=== PATIENT | male | born 1935 | race Caucasian/White ===

== ENCOUNTER 2017-10-15 17:41 | Inpatient (IN) ==
[2017-10-15 18:37] LABS: Basophils # 0.1 K/mm3 (0-0.2); Basophils % 0.5 % (0.1-2.0); Eosinophils # 0.5 K/mm3 (0.0-0.4); Eosinophils % 4.1 % (0.1-12.0); Hematocrit 37.1 % (42.0-52.0); Hemoglobin 11.7 g/dL (14.1-18.0); Lymphocytes # 1.9 K/mm3 (0.7-4.5); Lymphocytes % 14.6 K/mm3 (10-50); Mean Corpuscular HGB Conc 31.5 g/dL (31.8-35.4); Mean Corpuscular Hemoglobin 28.5 pg (27.0-31.2); Mean Corpuscular Volume 90.6 fl (80-94); Mean Platelet Volume 8.3 fl (7.4-10.4); Monocytes # 0.8 K/mm3 (0.1-1.0); Monocytes % 6.4 % (1.7-9.3); Neutrophils # 9.9 K/mm3 (1.8-7.8); Neutrophils % 74.4 % (37.0-80.0); Platelet Count 356 K/mm3 (142-424); Red Blood Count 4.09 M/mm3 (4.60-6.20); Red Cell Distribution Width 13.7 % (11.5-17.5); White Blood Count 13.2 K/mm3 (4.8-10.8)
[2017-10-15 19:00] LABS: Albumin Level 1.9 gm/dL (3.4-5.0); Albumin/Globulin Ratio 0.6 (1.1-1.8); Bilirubin,Total 0.5 mg/dL (0.2-1.0); Calcium 9.1 mg/dL (8.5-10.1); Free T4 (Free Thyroxine) 1.25 ng/dl (0.76-1.46); Globulin 3.4 gm/dl (1.3-3.2); Thyroid Stimulating Hormone 3.64 uIU/ml (0.358-3.740)
[2017-10-15 19:11] LABS: Total Protein,Serum 8.3 gm/dL (6.4-8.2)
--- NOTE | 2017-10-15 19:55 | Emergency Department Note ---
ED Disposition Clinical Impression: Bigeminy Disposition: Admitted As Inpatient Condition on Discharge: Good Time of Disposition: 19:55 - Critical Care Critical Care Time: No Attestation: On 10/15/17, the high probability of a clinically significant, sudden or life threatening deterioration of the following system(s) required my full and direct attention, intervention and personal management. The time I documented below is in addition to time spent performing reported procedures but includes the following listed in this critical care notation. Medical Decision Making - Medical Records Medical records reviewed: Yes: I reviewed the patient's medical records. - Zeus Inquiry Pt receiving controlled substance: No Vital Signs: 10/15/17 17:49 10/15/17 20:17 10/15/17 21:00 Temperature 98.7 F 98.5 F Temperature Source Oral Oral Pulse Rate [Right Radial] 68 75 Respiratory Rate 20 20 Blood Pressure [Right Arm] 160/81 186/86 Blood Pressure Mean [Right Arm] 107 119 Blood Pressure Source [Right Arm] Automatic Cuff Blood Pressure Position [Right Arm] Supine 02 Sat by Pulse Oximetry 96 90 L Oxygen Delivery Method Nasal Cannula Nasal Cannula Nasal Cannula Oxygen Flow Rate (LPM) 2 4 4 - Lab Data Lab results reviewed: Yes: I reviewed the patient's lab results. Lab Results 10/15/17 18:20: WBC 13.2 H, RBC 4.09 L, Hgb 11.7 L, Hct 37.1 L, MCV 90.6, MCH 28.5, MCHC 31.5 L, RDW 13.7, Plt Count 356, MPV 8.3, Neut % (Auto) 74.4, Lymph % (Auto) 14.6, [place] % (Auto) 6.4, Eos % (Auto) 4.1, Baso % (Auto) 0.5, Neut # ( Auto) 9.9 H, Lymph # (Auto) 1.9, [place] # (Auto) 0.8, Eos # (Auto) 0.5 H, Baso # ( Auto) 0.1 10/15/17 18:20: Sodium 140, Potassium 4.0, Chloride 102, Carbon Dioxide 33 H, Anion Gap 9.0, BUN 54 H, Creatinine 1.62 H, Estimated Creat Clear 54, Estimated GFR 41 L, Est GFR ( Amer) 49 L, Glucose 130 H, Calcium 9.1, Total Bilirubin 0.5, AST 168 H, ALT 23, Alkaline Phosphatase 205 H, Total Creatine Kinase 38 L, CK-MB (CK-2) 1.0, CK-MB (CK-2) Rel Index 2.6, Troponin I 0.03, Total Protein 8.3 H, Albumin 1.9 L, Globulin 3.4 H, Albumin/Globulin Ratio 0.6 L , TSH 3.64, Free T4 1.25 10/15/17 18:25: Lactic Acid 1.1 10/15/17 20:24: Urine Color Yellow, Urine Appearance Clear, Urine pH 6.0, Ur Specific [place] 1.020, Urine Protein 2+, Urine Glucose (UA) Negative, Urine Ketones Negative, Urine Blood Negative, Urine Nitrate Negative, Urine Bilirubin Negative, Urine Urobilinogen 0.2, Ur Leukocyte Esterase Negative, Urine RBC None , Urine WBC 3-5, Ur Squamous Epith Cells None, Urine Bacteria 1+ 10/15/17 23:25: Troponin I 0.02 10/16/17 06:25: Total Creatine Kinase 34 L, CK-MB (CK-2) 1.4 D, CK-MB (CK-2) Rel Index 4.1 H, Troponin I 0.02 Result diagrams: 10/15/17 18:20 10/15/17 18:20 Orders (Tests/Meds): ED MEDICATIONS Generic Name Dose Route Start Last Admin Trade Name Mooseq PRN Reason Stop Dose Admin Albuterol/Ipratropium 3 ml 10/16/17 13:00 10/16/17 13:32 Duoneb 3ml Neb IH 11/15/17 12:59 3 ml TIDRT TEODORO Administration Aspirin 81 mg 10/16/17 09:00 10/16/17 08:42 Aspirin 81mg Chewable Tablet PO 11/15/17 08:59 81 mg DAILY TEODORO Administration Bisoprolol Fumarate 10 mg 10/16/17 09:00 10/16/17 09:26 Zebeta 5mg Tablet PO 11/15/17 08:59 10 mg BID TEODORO Administration Carbidopa/Levodopa 1 each 10/16/17 07:47 10/16/17 14:17 Carbidopa/Levodopa 25/100mg Tablet PO 11/14/17 20:59 1 each TID TEODORO Administration Gabapentin 300 mg 10/15/17 21:00 10/16/17 08:43 Neurontin 300mg Capsule PO 11/14/17 20:59 300 mg BID TEODORO Administration Azithromycin 500 mg/ Sodium 250 mls @ 250 mls/hr 10/16/17 09:00 10/16/17 09: 28 Chloride IV 10/30/17 08:59 250 mls/hr Q24H TEODORO Administration Protocol Ceftriaxone Sodium 1 gm/ 50 mls @ 100 mls/hr 10/16/17 08:00 10/16/17 08:41 Sodium Chloride IV 10/30/17 07:59 100 mls/hr Q24H TEODORO Administration Protocol Levothyroxine Sodium 50 mcg 10/17/17 07:00 Synthroid 50mcg (0.05mg) Tablet PO 11/16/17 06:59 DAILYDM TEODORO Loratadine 10 mg 10/16/17 09:00 10/16/17 08:43 Claritin 10mg Tablet PO 11/15/17 08:59 10 mg DAILY TEODORO Administration Methylprednisolone Sodium Succinate 60 mg 10/16/17 09:45 10/16/17 16:09 Solu-Medrol 125mg/2ml Vial IV 11/15/17 09:44 60 mg Q6H TEODORO Administration Pt's Own Med 1 each 10/16/17 09:00 10/16/17 08:43 Umeclidinium Brm/ IH 11/15/17 08:59 1 each Vilanterol Tr [Anoro DAILY TEODORO Administration Ellipta] 62.5-25 Mcg Inh Pt's Own Med 2.5 mg 10/15/17 21:00 10/16/17 08:42 Apixaban [Eliquis] 2 PO 11/14/17 20:59 2.5 mg .5 Mg Tab BID TEODORO Administration Polyethylene Glycol 17 gm 10/16/17 09:00 Miralax 17gm Packet PO 11/15/17 08:59 DAILY PRN Constipation Pravastatin Sodium 40 mg 10/16/17 21:00 Pravachol 40mg Tablet PO 11/15/17 20:59 HS TEODORO Discontinued Medications Generic Name Dose Route Start Last Admin Trade Name Freq PRN Reason Stop Dose Admin Carbidopa/Levodopa 25 - 100 each 10/15/17 21:00 10/15/17 21:50 Carbidopa/Levodopa 25/100mg Tablet PO 11/14/17 20:59 1 each TID TEODORO Administration Carvedilol 25 mg 10/15/17 21:00 10/15/17 21:50 Coreg 25mg Tablet PO 11/14/17 20:59 25 mg BID TEODORO Administration Non-Formulary Medication 20 mg 10/15/17 21:00 10/15/17 23:36 Simvastatin [Zocor] PO 11/14/17 20:59 Not Given HS TEODORO ORDERS Category Date Time Status Consult to Cardiology [CONS] Routine Cons 10/15/17 20:35 Active Blood Culture Stat Micro 10/16/17 06:04 Received Sputum Culture & Gram Stain Routine Micro 10/16/17 08:50 Results - Radiology Data #1 Image(s): Chest Image Reviewed: Yes I reviewed the patient's radiology results, Yes I reviewed the patient's radiology image, Yes I have reviewed radiologist's interpretation Preliminary Findings: Normal/NAD - Physician Consults Physician Consulted: Dr Sanchez Time: 19:59 Reason -: Admission, Pt condition Comment/Response: agreeable to admit the patient - Reevaluation(s) Time: 20:00 Reevaluation #1: no improvement in the heart rhythm Weakness HPI - General Chief complaint: Weakness Stated complaint: LOW HEART RATE Time Seen by Provider: 10/15/17 18:00 Mode of Arrival: EMS Source of Information: Patient Limitations: No Limitations Description of Symptoms (Recalled from ER Triage Doc. by RN): SHELTER REPORTS HEART RATE OF 40s. 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 - History of Present Illness MD Complaint: generalized weakness Onset (ago): day(s) (1) Duration: constant Location: generalized Severity scale (1-10): 4 Quality: tingling Relieving factors: none Exacerbating factors: none Associated symptoms: denies other symptoms - Related Data Home Medications Medication Instructions Recorded Confirmed Apixaban [Eliquis] 2.5 mg PO BID 10/15/17 10/15/17 Aspirin 81 mg PO DAILY 10/15/17 10/15/17 Carbidopa/Levodopa 1 each PO TID 10/15/17 10/16/17 [Carbidopa/Levodopa 25/100mg Tablet] Carvedilol [Carvedilol 25mg Tab] 25 mg PO BID 10/15/17 10/15/17 Gabapentin [Gabapentin 300mg Cap] 300 mg PO BID 10/15/17 10/15/17 Loratadine [Claritin] 10 mg PO DAILY 10/15/17 10/15/17 Polyethylene Glycol 3350 [Miralax 17 gm PO DAILY PRN 10/15/17 10/15/17 Powder] Simvastatin [Zocor] 20 mg PO HS 10/15/17 10/15/17 Umeclidinium Brm/Vilanterol Tr 1 each IH DAILY 10/15/17 10/15/17 [Anoro Ellipta 62.5-25 Mcg INH] Fluticasone Furoate [Arnuity 1 puff IH DAILY 10/16/17 10/16/17 Ellipta] Levothyroxine Sodium 50 mcg PO DAILY 10/16/17 10/16/17 [Levothyroxine 50mcg (0.05mg) Tab] Multivitamin [Men's Multi-Vitamin] 1 each PO DAILY 10/16/17 10/16/17 Zinc Sulfate 220 mg PO DAILY 10/16/17 10/16/17 Allergies Allergy/AdvReac Type Severity Reaction Status Date / Time No Known Allergies Allergy Unverified 10/16/17 10:54 [facility] History I have reviewed the patient's past medical history: Yes - Social History Alcohol Intake: never - Psychiatric History Expresses thoughts of harming self/others: None Suicide Plan Description: No Plan ROS Obtained: Yes All systems reviewed & no additional complaints, Yes Systems reviewed as appropriate & no additional complaints - Constitutional Constitutional: Reports fatigue Physical Exam - General General appearance: alert, in no apparent distress - Head Head exam: atraumatic, normocephalic, normal inspection - Neck Neck exam: Present: normal inspection, full ROM, trachea midline. Absent: meningismus, lymphadenopathy - Chest Chest inspection: Present: normal inspection, symmetric chest wall rise. Absent : tenderness - Respiratory Respiratory exam: Present: normal lung sounds bilaterally. Absent: respiratory distress - Cardiovascular Cardiovascular exam: Present: normal rhythm, other (with PVCs). Absent: JVD - Abdominal Exam Abdominal exam: Present: soft, normal bowel sounds. Absent: distention, tenderness, guarding - Extremities Exam Extremities exam: Present: normal inspection, full ROM, normal capillary refill. Absent: calf tenderness - Back Exam Back exam: Present: normal inspection. Absent: tenderness - Neurological Exam Neurological exam: Present: alert, oriented X3 - Psychiatric Psychiatric exam: Present: normal affect, normal mood - Skin Skin exam: Present: warm, dry, normal color
[2017-10-15 20:53] LABS: Microscopic, Urine URINE MICROSCOPIC (MICROSCOPIC)
[2017-10-15 21:01] LABS: Appearance,Urine CLEAR (Clear); Bilirubin,Urine Negative (Negative); Blood, Urine Negative (Negative); Color,Urine YELLOW (Yellow); Glucose,Urine (UA) Negative (Negative); Ketones,Urine Negative (Negative); Leukocyte Esterase,Urine Negative (Negative); Protein,Urine 2+ (Negative); Urobilinogen,Urine 0.2 EU/dl (0.2)
[2017-10-15 21:08] LABS: Bacteria,Urine 1+ /lpf
--- NOTE | 2017-10-16 07:56 | Pharmacy Consult Notes ---
[facility] Pharmacy VTE Monitoring - Patient Demographics Admission date: 10/15/17 Report Date: 10/16/17 Time: 07:56 Allergies/Adverse Reactions: Patient Allergies NO KNOWN ALLERGIES - NKA Allergy (Unknown, Uncoded 06/12/17 15:37) Height: 1.85 m Weight: 91.172 kg Patient Problems: Current Active Problems Bigeminy (Acute) - VTE Risk Labs: VTE Related Lab Results Hgb 11.7 g/dL (14.1-18.0) L 10/15/17 18:20 Hct 37.1 % (42.0-52.0) L 10/15/17 18:20 Plt Count 356 K/mm3 (142-424) 10/15/17 18:20 BUN 54 mg/dL (7-18) H 10/15/17 18:20 Creatinine 1.62 mg/dL (0.70-1.30) H 10/15/17 18:20 Estimated Creat Clear 54 mL/min (0-300) 10/15/17 18:20 VTE Score: 5 VTE Risk Level: Low Risk - Prophylaxis VTE Prophylaxis Ordered?: Yes Types of VTE Prophylaxis: TEDS Knee High Pharmacologic Type: Other (eliquis)
--- NOTE | 2017-10-16 08:26 | Consult Report ---
History of Present Illness Consult date: 10/16/17 Requesting physician: Devante Sanchez Chief complaint: PAF, Bigeminy Additional Medical History:: 1. Hypertension 2. History of atrial fibrillation for which patient is Eliquis therapy 3. Questionable history of renal artery stenosis 4. Questionable history of coronary artery disease 5. Limited mobility History of present illness: 82-year-old white male admitted for bigeminy with reported low heart rate in the 30s and 40s. Patient denies any chest pain, pressure or tightness. He denies any episodes of syncope or near syncope. He has been at a nursing facility recently for rehab therapy for limited mobility. He denies any history of recent stroke or seizure. Telemetry overnight shows intermittent atrial fibrillation with bigeminy without marked bradycardia. Patient is a poor historian but answers questions appropriately. His sister is in the room and helps with him but also cannot remember a lot of the history. Cardiology consulted for evaluation and recommendations. [facility] History Medical History: Reports:: Atrial Fibrillation, Congestive Heart Failure, Coronary Artery Disease, Hyperlipidemia Denies:: Cancer, Diabetes Mellitus Type 1, Diabetes Mellitus Type 2, MRSA Other Medical History: Reports: Hypothyroidism Other Surgeries: Yes: Angioplasty Amputation: No Fractures: No - *Social History Educational Level: Attended High School Smoking Status: Former smoker Alcohol Intake: never Occupational Status: retired Housing: senior living - Psychiatric History Expresses thoughts of harming self/others: None Suicide Plan Description: No Plan Meds Home Medications Medication Instructions Recorded Confirmed Type Apixaban [Eliquis] 2.5 mg PO BID 10/15/17 10/15/17 History Aspirin 81 mg PO DAILY 10/15/17 10/15/17 History Carbidopa/Levodopa 25 - 100 each PO TID 10/15/17 10/15/17 History [Carbidopa/Levodopa 25/100mg Tablet] Carvedilol [Carvedilol 25mg Tab] 25 mg PO BID 10/15/17 10/15/17 History Gabapentin [Gabapentin 300mg Cap] 300 mg PO BID 10/15/17 10/15/17 History Loratadine [Claritin] 10 mg PO DAILY 10/15/17 10/15/17 History Polyethylene Glycol 3350 [Miralax 17 gm PO DAILY PRN 10/15/17 10/15/17 History Powder] Simvastatin [Zocor] 20 mg PO HS 10/15/17 10/15/17 History Umeclidinium Brm/Vilanterol Tr 1 each IH DAILY 10/15/17 10/15/17 History [Anoro Ellipta 62.5-25 Mcg INH] Allergies Allergy/AdvReac Type Severity Reaction Status Date / Time NO KNOWN ALLERGIES - NKA Allergy Unknown Uncoded 06/12/17 15:37 Review of Systems - *Cardiovascular Denies chest pain - *Respiratory Denies shortness of breath - *Gastrointestinal Denies abdominal pain - *Musculoskeletal Reports muscle weakness Exam Vital signs and Labs for Last 24 Hours: Temp Pulse Resp BP Pulse Ox 98.3 F 117 H 22 120/69 90 L 10/16/17 07:35 10/16/17 07:35 10/16/17 07:35 10/16/17 07:35 10/16/17 07:35 Laboratory Results - last 24 hr 10/15/17 18:20: WBC 13.2 H, RBC 4.09 L, Hgb 11.7 L, Hct 37.1 L, MCV 90.6, MCH 28.5, MCHC 31.5 L, RDW 13.7, Plt Count 356, MPV 8.3, Neut % (Auto) 74.4, Lymph % (Auto) 14.6, [place] % (Auto) 6.4, Eos % (Auto) 4.1, Baso % (Auto) 0.5, Neut # ( Auto) 9.9 H, Lymph # (Auto) 1.9, [place] # (Auto) 0.8, Eos # (Auto) 0.5 H, Baso # ( Auto) 0.1 10/15/17 18:20: Sodium 140, Potassium 4.0, Chloride 102, Carbon Dioxide 33 H, Anion Gap 9.0, BUN 54 H, Creatinine 1.62 H, Estimated Creat Clear 54, Estimated GFR 41 L, Est GFR ( Amer) 49 L, Glucose 130 H, Calcium 9.1, Total Bilirubin 0.5, AST 168 H, ALT 23, Alkaline Phosphatase 205 H, Total Creatine Kinase 38 L, CK-MB (CK-2) 1.0, CK-MB (CK-2) Rel Index 2.6, Troponin I 0.03, Total Protein 8.3 H, Albumin 1.9 L, Globulin 3.4 H, Albumin/Globulin Ratio 0.6 L , TSH 3.64, Free T4 1.25 10/15/17 18:25: Lactic Acid 1.1 10/15/17 20:24: Urine Color Yellow, Urine Appearance Clear, Urine pH 6.0, Ur Specific [place] 1.020, Urine Protein 2+, Urine Glucose (UA) Negative, Urine Ketones Negative, Urine Blood Negative, Urine Nitrate Negative, Urine Bilirubin Negative, Urine Urobilinogen 0.2, Ur Leukocyte Esterase Negative, Urine RBC None , Urine WBC 3-5, Ur Squamous Epith Cells None, Urine Bacteria 1+ 10/15/17 23:25: Troponin I 0.02 I & O for Last 24 hours: Intake & Output 10/13/17 10/14/17 10/15/17 10/16/17 11:59 11:59 11:59 11:59 Intake Total Output Total 600 / 600 Balance -590 / -590 Weight 201 lb - *Routine Neck Exam Present: supple. Absent: JVD, carotid bruit - *Routine Respiratory Exam Present: wheezes - *Routine Cardiovascular Exam Present: irregularly irregular - *Routine Abdominal Exam Absent: tenderness - *Routine Extremities Exam Absent: edema - *Routine Neurological Exam Present: alert, oriented X3, moving all extremities Assessment and Plan (1) Paroxysmal atrial fibrillation Current visit: Yes Status: Acute Category: Medical Code(s): I48.0 - Paroxysmal atrial fibrillation (2) Hypertension Current visit: Yes Status: Acute Category: Medical Code(s): I10 - Essential (primary) hypertension (3) Coronary artery disease Current visit: Yes Status: Acute Category: Medical Code(s): I25.10 - Atherosclerotic heart disease of [place] coronary artery without angina pectoris (4) Bigeminy Current visit: Yes Status: Acute Category: Medical Code(s): I49.9 - Cardiac arrhythmia, unspecified - Assessment and plan all Dx Assessment and Plan for all problems:: 1. Obtain an echocardiogram to evaluate left ventricular size and function. 2. Recommend switching Coreg to either metoprolol or bisoprolol for better rate control. 3. Will try to obtain records from either [facility] or [facility] regarding patient's previous procedures relating to the heart and/or kidneys. He states he previously saw Dr. Sotelo several years ago for possible renal artery stenosis and coronary artery disease. 4. 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
--- NOTE | 2017-10-16 09:53 | History & Physical Report ---
*Admission Date: 10/15/17 *Chief complaint: lethargy, confusion, fever *History of present illness: 82-year-old white male admitted for bigeminy with reported low heart rate in the 30s and 40s. Patient denies any chest pain, pressure or tightness. He denies any episodes of syncope or near syncope. He has been at a nursing facility recently for rehab therapy for limited mobility. He denies any history of recent stroke or seizure. Telemetry overnight shows intermittent atrial fibrillation with bigeminy without marked bradycardia. Patient is a poor historian but answers questions appropriately. His sister is in the room and helps with him but also cannot remember a lot of the history. Cardiology consulted for evaluation and recommendations. Above per LALA Melendrez. Patient was seen by myself at [facility] yesterday where he was lethargic, confused and bradycardiac. senior living staff reported low grade temps throughout the day, as well. He was sent to the ED for evaluation where he was found to have bilateral pneumonia and bigeminy/atrial fib. He has a h/o a. fib for which he takes eliquis. [facility] History I have reviewed the patient's past medical history: Yes Medical History: Reports:: Atrial Fibrillation, Congestive Heart Failure, Coronary Artery Disease, Hyperlipidemia Denies:: Cancer, Diabetes Mellitus Type 1, Diabetes Mellitus Type 2, MRSA Other Medical History: Reports: Hypothyroidism Other Surgeries: Yes: Angioplasty Amputation: No Fractures: No - *Social History Educational Level: Attended High School Smoking Status: Former smoker Alcohol Intake: never Occupational Status: retired Housing: residential - Psychiatric History Expresses thoughts of harming self/others: None Suicide Plan Description: No Plan Review of Systems - Review of Systems Review of systems:: pertinent systems reviewed and negative unless documented below - *Respiratory Reports chest congestion, Reports cough, Reports shortness of breath, Reports wheezing - Integumentary/Breasts Comments: right foot superficial lesion - *Neurologic Reports confusion Meds Home Medications Medication Instructions Recorded Confirmed Type Apixaban [Eliquis] 2.5 mg PO BID 10/15/17 10/15/17 History Aspirin 81 mg PO DAILY 10/15/17 10/15/17 History Carbidopa/Levodopa 1 each PO TID 10/15/17 10/16/17 History [Carbidopa/Levodopa 25/100mg Tablet] Carvedilol [Carvedilol 25mg Tab] 25 mg PO BID 10/15/17 10/15/17 History Gabapentin [Gabapentin 300mg Cap] 300 mg PO BID 10/15/17 10/15/17 History Loratadine [Claritin] 10 mg PO DAILY 10/15/17 10/15/17 History Polyethylene Glycol 3350 [Miralax 17 gm PO DAILY PRN 10/15/17 10/15/17 History Powder] Simvastatin [Zocor] 20 mg PO HS 10/15/17 10/15/17 History Umeclidinium Brm/Vilanterol Tr 1 each IH DAILY 10/15/17 10/15/17 History [Anoro Ellipta 62.5-25 Mcg INH] Fluticasone Furoate [Arnuity 1 puff IH DAILY 10/16/17 10/16/17 History Ellipta] Levothyroxine Sodium 50 mcg PO DAILY 10/16/17 10/16/17 History [Levothyroxine 50mcg (0.05mg) Tab] Multivitamin [Men's Multi-Vitamin] 1 each PO DAILY 10/16/17 10/16/17 History Zinc Sulfate 220 mg PO DAILY 10/16/17 10/16/17 History Allergies Allergy/AdvReac Type Severity Reaction Status Date / Time No Known Allergies Allergy Unverified 10/16/17 10:54 Exam Vital signs and Labs for Last 24 Hours: Temp Pulse Resp BP Pulse Ox 98.3 F 117 H 22 120/69 90 L 10/16/17 07:35 10/16/17 07:35 10/16/17 09:03 10/16/17 07:35 10/16/17 09:03 Laboratory Results - last 24 hr 10/15/17 18:20: WBC 13.2 H, RBC 4.09 L, Hgb 11.7 L, Hct 37.1 L, MCV 90.6, MCH 28.5, MCHC 31.5 L, RDW 13.7, Plt Count 356, MPV 8.3, Neut % (Auto) 74.4, Lymph % (Auto) 14.6, [place] % (Auto) 6.4, Eos % (Auto) 4.1, Baso % (Auto) 0.5, Neut # ( Auto) 9.9 H, Lymph # (Auto) 1.9, [place] # (Auto) 0.8, Eos # (Auto) 0.5 H, Baso # ( Auto) 0.1 10/15/17 18:20: Sodium 140, Potassium 4.0, Chloride 102, Carbon Dioxide 33 H, Anion Gap 9.0, BUN 54 H, Creatinine 1.62 H, Estimated Creat Clear 54, Estimated GFR 41 L, Est GFR ( Amer) 49 L, Glucose 130 H, Calcium 9.1, Total Bilirubin 0.5, AST 168 H, ALT 23, Alkaline Phosphatase 205 H, Total Creatine Kinase 38 L, CK-MB (CK-2) 1.0, CK-MB (CK-2) Rel Index 2.6, Troponin I 0.03, Total Protein 8.3 H, Albumin 1.9 L, Globulin 3.4 H, Albumin/Globulin Ratio 0.6 L , TSH 3.64, Free T4 1.25 10/15/17 18:25: Lactic Acid 1.1 10/15/17 20:24: Urine Color Yellow, Urine Appearance Clear, Urine pH 6.0, Ur Specific [place] 1.020, Urine Protein 2+, Urine Glucose (UA) Negative, Urine Ketones Negative, Urine Blood Negative, Urine Nitrate Negative, Urine Bilirubin Negative, Urine Urobilinogen 0.2, Ur Leukocyte Esterase Negative, Urine RBC None , Urine WBC 3-5, Ur Squamous Epith Cells None, Urine Bacteria 1+ 10/15/17 23:25: Troponin I 0.02 10/16/17 06:25: Total Creatine Kinase 34 L, CK-MB (CK-2) 1.4 D, CK-MB (CK-2) Rel Index 4.1 H, Troponin I 0.02 I & O for Last 24 hours: Intake & Output 10/13/17 10/14/17 10/15/17 10/16/17 11:59 11:59 11:59 11:59 Intake Total Output Total 600 / 600 Balance -590 / -590 Weight 201 lb Narrative: Alert and oriented x3 with some confusion, slow to answer. Rate and rhythm irregular. No edema. No JVD. Lung sounds with wheezes/rhonchi anteriorly. Abdomen soft and nontender. No acute neuro symptoms. H&P: Result - Labs Labs: Short CBC 10/15/17 Range/Units 18:20 WBC 13.2 H (4.8-10.8) K/mm3 Hgb 11.7 L (14.1-18.0) g/dL Hct 37.1 L (42.0-52.0) % Plt Count 356 (142-424) K/mm3 BMP 10/15/17 18:20 Sodium 140 Potassium 4.0 Chloride 102 Carbon Dioxide 33 H BUN 54 H Creatinine 1.62 H Glucose 130 H Calcium 9.1 Cardiac Enzymes 10/15/17 10/15/17 10/16/17 Range/Units 18:20 23:25 06:25 Total Creatine Kinase 38 L 34 L (39-308) U/L CK-MB (CK-2) 1.0 1.4 D (0.0-3.6) ng/ml Troponin I 0.03 0.02 0.02 (0.00-0.06) ng/ml Liver Function 10/15/17 Range/Units 18:20 Total Bilirubin 0.5 (0.2-1.0) mg/dL AST 168 H (15-37) U/L ALT 23 (12-78) U/L Alkaline Phosphatase 205 H (46-116) U/L Albumin 1.9 L (3.4-5.0) gm/dL Urine 10/15/17 Range/Units 20:24 Urine Color Yellow (Yellow) Urine Appearance Clear (Clear) Urine pH 6.0 (5.0-8.5) Ur Specific [place] 1.020 (1.005-1.030) Urine Protein 2+ (Negative) Urine Glucose (UA) Negative (Negative) Assessment and Plan (1) Paroxysmal atrial fibrillation Current visit: Yes Status: Acute Category: Medical Code(s): I48.0 - Paroxysmal atrial fibrillation (2) Hypertension Current visit: Yes Status: Acute Category: Medical Code(s): I10 - Essential (primary) hypertension (3) Coronary artery disease Current visit: Yes Status: Acute Category: Medical Code(s): I25.10 - Atherosclerotic heart disease of [place] coronary artery without angina pectoris (4) Bigeminy Current visit: Yes Status: Acute Category: Medical Code(s): I49.9 - Cardiac arrhythmia, unspecified (5) Bilateral pneumonia Current visit: Yes Status: Acute Category: Medical Code(s): J18.9 - Pneumonia, unspecified organism - Assessment and plan all Dx Assessment and Plan for all problems:: Antibiotics, duonebs and steroids for his pneumonia. Coreg changed to bisoprolol per cardiology. Will obtain Echo. Continue telemetry to monitor rate/rhythm.
--- NOTE | 2017-10-16 23:06 | Cardiology Report ---
PROCEDURE: 2-D M-mode and color Doppler study INDICATIONS FOR THE TEST: Chest pain COPD+ Heart Murmur+ Tobacco SmokingEX Palpitations Fatigue Syncope Edema Hypertension+Diabetes Mellitus Rheumatic Fever SOB+SILVESTRE+Obesity+Hyperlipidemia+ Family History HD+ Additional History Bigeminy, dizziness, cad PATIENT INFORMATION HEIGHT: 73 WEIGHT: 201 GENDER: Male B/P: 120/69 2-D/M-MODE INTERPRETATION: 2-D MEASUREMENTS OBSERVED VALUES IN CMS Right Ventricular Dimension (RVDd) 2.2 Interventricular Septum (Thickness)(IVsd) 1.0 Left Ventricular Internal Dimensions(LVIDd) 4.0 Left Ventricular Posterior Wall (Thickness)(LVPWd) 1.2 Aortic Root 3.5 Aortic Cusp Separation 1.0 Left Atrial Dimensions (LAD) 4.2 2D 1. Left atrium is mildly enlarged, left ventricle is normal size, there is mild concentric left ventricular hypertrophy, visually estimated ejection fraction 55% with no obvious regional wall motion abnormality, endocardial surface of very poorly visualized. 2. The right atrium and right ventricle are normal size and contractility. 3. The aortic valve is thickened and calcified with severe restriction the leaflet mobility, morphologically there is severe aortic stenosis. 4. The mitral and tricuspid valve leaflets are minimally thickened. 5. The pulmonic valve is poorly visualized. 6. No significant pericardial effusion noted. DOPPLER INTERROGATION: Doppler interrogation of the aortic valve is very suboptimal, mean gradient in the aortic valve velocity is are not accurately recorded, morphologically there is severe aortic stenosis and increased moderate aortic insufficiency. Repeat study with Definity contrast as well as better Doppler technique is recommended to assess the morphology of the aortic valve and severity aortic valve disease.Mild mitral and tricuspid regurgitation, tricuspid and jet velocity insufficient for calculation of the right ventricular systolic pressure. CONCLUSION: 1. Technically difficult and poor study performed, aortic valve Doppler is suboptimal. Repeat study with Definity contrast Doppler technique is recommended. 2. Mildly enlarged left atrium, normal left ventricular size, mild concentric left ventricular hypertrophy, visually estimated ejection fraction 55% with no obvious regional wall motion abnormality. Diastolic parameters are inconclusive. 3. Thickened and calcified aortic valve, morphologically there is severe aortic stenosis at least moderate aortic insufficiency as described above. 4. Mild mitral and tricuspid regurgitation 5. No significant pericardial effusion noted.
[2017-10-17 07:52] LABS: Basophils % 0.1 % (0.1-2.0); Eosinophils % 0.2 % (0.1-12.0); Hematocrit 36.9 % (42.0-52.0); Hemoglobin 11.4 g/dL (14.1-18.0); Lymphocytes # 0.9 K/mm3 (0.7-4.5); Lymphocytes % 8.1 K/mm3 (10-50); Mean Corpuscular HGB Conc 30.9 g/dL (31.8-35.4); Mean Corpuscular Hemoglobin 28.3 pg (27.0-31.2); Mean Corpuscular Volume 91.6 fl (80-94); Mean Platelet Volume 8.6 fl (7.4-10.4); Monocytes # 0.3 K/mm3 (0.1-1.0); Monocytes % 2.9 % (1.7-9.3); Neutrophils # 9.2 K/mm3 (1.8-7.8); Neutrophils % 88.7 % (37.0-80.0); Platelet Count 335 K/mm3 (142-424); Red Blood Count 4.03 M/mm3 (4.60-6.20); Red Cell Distribution Width 13.7 % (11.5-17.5); White Blood Count 10.4 K/mm3 (4.8-10.8)
[2017-10-17 07:53] VITALS: BP 145/58
[2017-10-17 08:07] LABS: Albumin Level 1.8 gm/dL (3.4-5.0); Albumin/Globulin Ratio 0.3 (1.1-1.8); Anion Gap 11.4 mEq/L (5-15); Bilirubin,Total 0.4 mg/dL (0.2-1.0); Potassium 4.4 mmoL/L (3.5-5.1); Total Protein,Serum 7.8 gm/dL (6.4-8.2)
--- NOTE | 2017-10-17 08:36 | Discharge Summary ---
General - General Admission date:: 10/16/17 Discharge date: 10/17/17 HPI HPI: 82-year-old white male admitted for bigeminy with reported low heart rate in the 30s and 40s. Patient denies any chest pain, pressure or tightness. He denies any episodes of syncope or near syncope. He has been at a nursing facility recently for rehab therapy for limited mobility. He denies any history of recent stroke or seizure. Telemetry overnight shows intermittent atrial fibrillation with bigeminy without marked bradycardia. Patient is a poor historian but answers questions appropriately. His sister is in the room and helps with him but also cannot remember a lot of the history. Cardiology consulted for evaluation and recommendations. Above per LALA Melendrez. Patient was seen by myself at [facility] yesterday where he was lethargic, confused and bradycardiac. prison staff reported low grade temps throughout the day, as well. He was sent to the ED for evaluation where he was found to have bilateral pneumonia and bigeminy/atrial fib. He has a h/o a. fib for which he takes eliquis. Hospital Course Hospital Course: Patient was admitted overnight, had wheezing and coughing and congestion, antibiotics were started, sputum culture was obtained which revealed gram- positive diplococci. No further episodes of significant bradycardia were noted. His bigeminy was noted, and cardiology recommended changing patient to bisoprolol for better rate control which was done. Echocardiogram showed ejection fraction 55% with aortic valve stenosis and regurgitation but noncritical Patient improved from a conversational and functional status and this morning was pleasant, talkative but demented, and eating well. Exam and improved vis-- vis lung function. He will be sent back to the retirement with different beta-irene, antibiotics and steroids for his pneumonia, and close follow-up labs next week. Objective Vital signs: Temp Pulse Resp BP Pulse Ox 98.5 F 64 20 145/58 90 L 10/17/17 07:52 10/17/17 07:52 10/17/17 07:52 10/17/17 07:52 10/17/17 07:52 Narrative: Concerning and masked facies noted. Patient is more talkative than yesterday. Remains disoriented. Lungs have expiratory wheezing but much better air entry, heart rate regular, abdomen soft, no edema or clubbing. Results Labs on day of discharge: Labs from last 24 hours 10/17/17 10/17/17 10/16/17 06:41 06:11 06:25 WBC 10.4 RBC 4.03 L Hgb 11.4 L Hct 36.9 L MCV 91.6 MCH 28.3 MCHC 30.9 L RDW 13.7 Plt Count 335 MPV 8.6 Neut % (Auto) 88.7 H Lymph % (Auto) 8.1 L [place] % (Auto) 2.9 Eos % (Auto) 0.2 Baso % (Auto) 0.1 Neut # (Auto) 9.2 H Lymph # (Auto) 0.9 [place] # (Auto) 0.3 Eos # (Auto) 0.0 Baso # (Auto) 0.0 Sodium 143 Potassium 4.4 Chloride 104 Carbon Dioxide 32 Anion Gap 11.4 BUN 60 H Creatinine 1.51 H Estimated Creat Clear 47 Estimated GFR 44 L Est GFR ( Amer) 54 L Glucose 183 H Calcium 9.0 Total Bilirubin 0.4 AST 112 H D ALT 7 L D Alkaline Phosphatase 185 H Total Creatine Kinase 34 L CK-MB (CK-2) 1.4 D CK-MB (CK-2) Rel Index 4.1 H Troponin I 0.02 Total Protein 7.8 Albumin 1.8 L Globulin 6.0 H Albumin/Globulin Ratio 0.3 L Preliminary micro results at discharge 10/16/17 08:50 Sputum Culture - Preliminary Sputum - Expectorated Sputum 10/15/17 18:20 Blood Culture - Preliminary Blood NO GROWTH AFTER 24 HOURS 10/15/17 18:20 Blood Culture - Preliminary Blood NO GROWTH AFTER 24 HOURS DS: Diagnosis - Discharge Diagnosis (1) Bigeminy Status: Acute (2) Bilateral pneumonia Status: Acute (3) Hypertension Status: Acute Discharge Plan - Patient Discharge Instructions ACTIVITY: Continue current activity DIET: continue same diet - Follow up Plan Follow up with: Devante Sanchez MD [Primary Care Provider] - 10/23/17 Disposition: er [facility] Home Medications: Home Medications Medication Instructions Recorded Confirmed Type Apixaban [Eliquis] 2.5 mg PO BID 10/15/17 10/15/17 History Aspirin 81 mg PO DAILY 10/15/17 10/15/17 History Carbidopa/Levodopa 1 each PO TID 10/15/17 10/16/17 History [Carbidopa/Levodopa 25/100mg Tablet] Carvedilol [Carvedilol 25mg Tab] 25 mg PO BID 10/15/17 10/15/17 History Gabapentin [Gabapentin 300mg Cap] 300 mg PO BID 10/15/17 10/15/17 History Loratadine [Claritin] 10 mg PO DAILY 10/15/17 10/15/17 History Polyethylene Glycol 3350 [Miralax 17 gm PO DAILY PRN 10/15/17 10/15/17 History Powder] Simvastatin [Zocor] 20 mg PO HS 10/15/17 10/15/17 History Umeclidinium Brm/Vilanterol Tr 1 each IH DAILY 10/15/17 10/15/17 History [Anoro Ellipta 62.5-25 Mcg INH] Fluticasone Furoate [Arnuity 1 puff IH DAILY 10/16/17 10/16/17 History Ellipta] Levothyroxine Sodium 50 mcg PO DAILY 10/16/17 10/16/17 History [Levothyroxine 50mcg (0.05mg) Tab] Multivitamin [Men's Multi-Vitamin] 1 each PO DAILY 10/16/17 10/16/17 History Zinc Sulfate 220 mg PO DAILY 10/16/17 10/16/17 History Prescriptions/Medication Reconciliation: New Bisoprolol Fumarate [Zebeta 5mg tablet] 10 mg PO BID tablet Cefdinir [Omnicef 300mg Capsule] 300 mg PO BID #14 cap predniSONE [Deltasone 20mg tablet] 20 mg PO BID 30 Days #14 tab Azithromycin [Zithromax 250mg tab] 250 mg PO DIRECTED #6 tab Continue Umeclidinium Brm/Vilanterol Tr [Anoro Ellipta 62.5-25 Mcg INH] 1 each IH DAILY Simvastatin [Zocor] 20 mg PO HS Polyethylene Glycol 3350 [Miralax Powder] 17 gm PO DAILY PRN PRN Reason: Constipation Loratadine [Claritin] 10 mg PO DAILY Gabapentin [Gabapentin 300mg Cap] 300 mg PO BID Carbidopa/Levodopa [Carbidopa/Levodopa 25/100mg Tablet] 1 each PO TID Aspirin 81 mg PO DAILY Apixaban [Eliquis] 2.5 mg PO BID Fluticasone Furoate [Arnuity Ellipta] 1 puff IH DAILY Levothyroxine Sodium [Levothyroxine 50mcg (0.05mg) Tab] 50 mcg PO DAILY Multivitamin [Men's Multi-Vitamin] 1 each PO DAILY Zinc Sulfate 220 mg PO DAILY Discontinued Carvedilol [Carvedilol 25mg Tab] 25 mg PO BID
[2017-10-17 12:19] LABS: Lymphocytes % 12 % (10-50); Monocytes % 1 % (2-9); Neutrophils % 87 % (42-76); Total Cells Counted 100
[2017-10-17 12:20] LABS: RBC Morphology Normal
== END 2017-10-17 10:53 ==
LOC: ER 17:41 → 2ND 20:00 → INTOOBSV 21:03 → 2ND 21:04
PROVIDERS: ADMIT Internal Medicine Adolescent Medicine; ATTEND Internal Medicine Adolescent Medicine
CPT/HCPCS: 36415; 71010; 71045; 80053; 81001; 82550; 82553; 83605; 84439; 84443; 84484; 85007; 85025; 87040; 87070; 87205; 93005; 93306; 94640; 94760; 99284; G0378; J0456